=== PATIENT | female | born 1990 | race Two or more races ===

== ENCOUNTER 2019-03-14 10:45 | Observation (INO) | payer OTHER ==
[~2019-03-14 10:45] MED LIST: NORPTMEDS CO
[2019-03-14 11:42] LABS: Basophils # (auto) 0.1 uL; Eosinophils # (auto) 0.1 uL; Eosinophils % (auto) 0.8 % (0.0-7.0); Hemoglobin 10.5 g/dL (12.2-16.2); Lymphocytes # (auto) 2.1 uL; White Blood Cell 10.4 10^3/uL (4.4-10.8)
[2019-03-14 11:43] LABS: Hematocrit 33.8 % (36.0-46.0); Lymphocytes % (auto) 20.5 % (10.0-50.0); Mean Corpuscular Hemoglobin 21.6 pg (28.0-32.0); Mean Corpuscular Hgb Conc. 31.1 g/dL (32.0-36.0); Mean Corpuscular Volume 69.5 fL (80.0-100.0); Monocytes # (auto) 0.7 uL; Neutrophils # (auto) 7.3 uL; Neutrophils % (auto) 70.7 % (37.0-80.0); Platelet Count (auto) 250 10^3/uL (140-450); Red Blood Cells 4.86 10^6/uL (4.0-5.20); Red Cell Distribution Width 18.2 % (11.8-14.3); Urine Bacteria FEW /hpf (None Seen); Urine Blood Negative /uL (Negative); Urine Mucus FEW (None Seen); Urine Specific Gravity 1.014 (1.001-1.035); Urine WBC 3 /hpf (0 - 5)
[2019-03-14 11:54] LABS: Albumin 2.6 g/dL (3.4-5.0); Calcium 8.2 mg/dL (8.5-10.1); Potassium 3.7 mmol/L (3.5-5.1)
[2019-03-14 11:55] LABS: Alcohol, Urine < 3.0 mg/dL (0-5); Amphetamine Screen, Urine NEGATIVE (NEGATIVE); Barbiturate Scree,Urine NEGATIVE (NEGATIVE); Benzodiazephine Screen, Urine NEGATIVE (NEGATIVE); Cannabinoid Screen, Urine POSITIVE (NEGATIVE); Cocaine Screen, Urine NEGATIVE (NEGATIVE); Opiate Scree,Urine NEGATIVE (NEGATIVE); Phencyclidine Screen, Urine NEGATIVE (NEGATIVE)
[2019-03-14 11:58] LABS: BUN/Creatinine Ratio 11.4; Bilirubin, Total 0.3 mg/dL (0.2-1.0); Total Protein 7.3 g/dL (6.4-8.2)
[2019-03-15 06:06] LABS: Rubella Antibodies, IgG 1.95 index (Immune >0.99)
[2019-03-15 07:06] LABS: RPR Non Reactive (Non Reactive)
== END 2019-03-14 11:40 | disposition home or self-care (01) | DRG 566 ==
LOC: LDRP 10:45
PROVIDERS: ADMIT Specialist; ATTEND Specialist
DX: O26.893 Other specified pregnancy related conditions, third trimester (principal); F17.210 Nicotine dependence, cigarettes, uncomplicated; O99.333 Smoking (tobacco) complicating pregnancy, third trimester; Z3A.36 36 weeks gestation of pregnancy
CPT/HCPCS: 36415; 59025; 76805; 80053; 80307; 81001; 81002; 83036; 85025; 86592; 86703; 86762; 87081; 87340; 87491; 87591; G0378

== ENCOUNTER 2019-03-30 11:38 | Inpatient (IN) | payer SELFPAY ==
[~2019-03-30] VITALS: Ht 165.1 cm; Wt 61.2 kg
[2019-03-30] MEDS ORDERED: PREN-96 PO (12:09)
[2019-03-30] MEDS ORDERED: DERMOPLAST 60ML BOTTLE TOP PRN (12:15)
[2019-03-30] MEDS ORDERED: WITCH HAZEL-GLYCERIN PAD TOP PRN (12:15)
[2019-03-30] MEDS ORDERED: PHISODERM TOP SOLN 240ML BTL TOP PRN (12:15)
[2019-03-30] MEDS ORDERED: METHYLERGONOVINE MALEATE 0.2 MG/ML AMP IM PRN (12:15)
[2019-03-30] MEDS ORDERED: LACTATED RINGER'S 1,000 ML IV SCH (12:15)
[2019-03-30] MEDS ORDERED: PENICILLIN G POT 5MIL/D5 50ML 50 ML IV ONE (12:15)
[2019-03-30] MEDS ORDERED: LIDOCAINE 2%HCL (LOCAL ANESTH.) INJ 20ML MDV ID ONE (12:15)
[2019-03-30] MEDS ORDERED: NALBUPHINE HCL 10 MG/1ml INJECTION IV PRN (12:15)
[2019-03-30] MEDS ORDERED: LACT. RINGERS/OXYTOCIN 20UNITS 1,000 ML IV SCH (12:22)
[2019-03-30 12:46] LABS: Alcohol, Urine < 3.0 mg/dL (0-5); Amphetamine Screen, Urine POSITIVE (NEGATIVE); Barbiturate Scree,Urine NEGATIVE (NEGATIVE); Benzodiazephine Screen, Urine NEGATIVE (NEGATIVE); Cannabinoid Screen, Urine POSITIVE (NEGATIVE); Cocaine Screen, Urine NEGATIVE (NEGATIVE); Opiate Scree,Urine NEGATIVE (NEGATIVE); Phencyclidine Screen, Urine NEGATIVE (NEGATIVE)
[2019-03-30 12:51] LABS: Urine Bacteria NONE SEEN /hpf (None Seen); Urine Blood Negative /uL (Negative); Urine Mucus FEW (None Seen); Urine Specific Gravity 1.015 (1.001-1.035); Urine WBC 2 /hpf (0 - 5)
[2019-03-30 13:14] LABS: Albumin 2.4 g/dL (3.4-5.0); Calcium 8.2 mg/dL (8.5-10.1); Potassium 3.6 mmol/L (3.5-5.1)
[2019-03-30 13:16] LABS: INR < 0.93 (0.9-1.15); Partial Thromboplastin Time 24.8 sec (23.64-32.05)
[2019-03-30 13:17] LABS: BUN/Creatinine Ratio 15.7; Bilirubin, Total 0.5 mg/dL (0.2-1.0); Total Protein 6.6 g/dL (6.4-8.2)
[2019-03-30] MEDS ORDERED: LACT. RINGERS/OXYTOCIN 20UNITS 500 ML IV ONE (13:27)
[2019-03-30] MEDS ORDERED: ACETAMINOPHEN 325 MG TAB PO PRN (13:30)
[2019-03-30 13:37] LABS: Basophils # (auto) 0.1 uL; Basophils % (auto) 0.7 % (0.0-2.0); Eosinophils # (auto) 0 uL; Eosinophils % (auto) 0.1 % (0.0-7.0); Lymphocytes # (auto) 2.2 uL; White Blood Cell 15.7 10^3/uL (4.4-10.8)
[2019-03-30 13:53] LABS: Hematocrit 31.3 % (36.0-46.0); Hemoglobin 9.7 g/dL (12.2-16.2); Lymphocytes % (auto) 14.2 % (10.0-50.0); Mean Corpuscular Hemoglobin 21.5 pg (28.0-32.0); Mean Corpuscular Hgb Conc. 31.1 g/dL (32.0-36.0); Mean Corpuscular Volume 69.1 fL (80.0-100.0); Monocytes % (auto) 6.6 % (0.0-12.0); Neutrophils # (auto) 12.3 uL; Neutrophils % (auto) 78.4 % (37.0-80.0); Platelet Count (auto) 293 10^3/uL (140-450); Red Blood Cells 4.53 10^6/uL (4.0-5.20); Red Cell Distribution Width 19.4 % (11.8-14.3)
[2019-03-30 15:14] VITALS: BP 130/58
--- NOTE | 2019-03-30 15:50 | NUR ---
CALLED DR. SOSA TO LET HER KNOW PATIENTS TEMP IS 99.2 , READ WBC, HGB, LAB VALUES . PATIENT IS POSITIVE FOR METH AND THC. NEW ORDERS RECEIVED GIVE MEDICATION IRON TABS 325 MG/BID /PO , ANCEF 1 GRAM /IVPB TIMES THREE DOSES.
--- NOTE | 2019-03-30 15:50 | NUR ---
Ambulation: Patient OOB with standby assistance by RN. Patient ambulated to bathroom with steady gait. Patient able to void without difficulty 400 ML [employer] teaching provided with returned demonstration by patient. Clean gown provided and bed linen changed. Patient ambulated back to bed with steady gait and no distress noted.
[2019-03-30] MEDS ORDERED: ceFAZolin 1GM/50ML 50 ML IV ONE (16:00)
[2019-03-30] MEDS: FERROUS SULFATE 325 MG TAB PO SCH (17:56)
[2019-03-30 19:30] VITALS: BP 125/72
[2019-03-30 23:00] VITALS: BP 116/66
[2019-03-30] MEDS: IBUPROFEN 600 MG TAB PO PRN (23:09)
[2019-03-31 02:55] VITALS: BP 118/65
[2019-03-31 04:06] LABS: RPR Non Reactive (Non Reactive)
[2019-03-31] MEDS: IBUPROFEN 600 MG TAB PO PRN (05:52)
[2019-03-31 07:00] VITALS: BP 108/65
[2019-03-31] MEDS ORDERED: ceFAZolin 1GM/50ML 50 ML IV ONE ×2 (08:00)
[2019-03-31] MEDS: FERROUS SULFATE 325 MG TAB PO SCH (08:00)
[2019-03-31 11:00] VITALS: BP 135/87
--- NOTE | 2019-03-31 12:20 | NUR ---
the quality analyst/technical writer of this notes talked to modest[place] the social services and explained about what is going on with this patient and she said she will speak to the CPS and asked what is the hold for the baby of this patient.
--- NOTE | 2019-03-31 12:30 | NUR ---
Cortney the social insurance administrator called up and said that the CPS worker named Jose melendezanup her that they will follow up with the patient after discharge.the [facility] case number is [id number].
--- NOTE | 2019-03-31 13:00 | NUR ---
DR. Nowak was called to inform him about the POC of the CPS for this baby and asked him if the tech writer of this notes can get an order for the baby to be discharged, said to wait for the result of the blood culture after 24 hours.
--- NOTE | 2019-03-31 13:10 | NUR ---
explained to the patient the POC and patient verbalized understanding.
[2019-03-31 15:00] VITALS: BP 130/85
--- NOTE | 2019-03-31 15:25 | NUR ---
Discharge: Discharge instructions given to mother of baby as ordered. Copies of and hearing screening, along with vaccination record given to mother. Mother encouraged to follow up with Flow Specialist of choice and to give envelope with infants information to vessel traffic officer at 1st office visit. All questions and concerns addressed. Mother of baby verbalized understanding and agreed to comply. Mother of baby encouraged to prepare for departure and notify RN ready to leave room for ID band removal/verification and car seat check.
--- NOTE | 2019-03-31 15:25 | NUR ---
Discharge: Discharge instructions given as ordered. Pt encouraged to follow up with DIGITAL PRESS OPERATOR as instructed. All questions and concerns addressed. Patient verbalized understanding. Medication reconciliation completed and copy given to patient. All required/requested vaccines given and copies of vaccinations given to patient. Patient encouraged to prepare to depart unit.
== END 2019-03-31 15:40 | disposition home or self-care (01) | DRG 807 ==
LOC: LDRP 11:38 → OBSVTOIN 11:38 → LDRP 12:11
PROVIDERS: ADMIT Obstetrics & Gynecology; ATTEND Obstetrics & Gynecology
PROC: 10907ZC Drainage of Amniotic Fluid, Therapeutic from Products of Conception, Via Natural or Artificial Opening (ICD-10-PCS; principal; 2019-03-30)
PROC: 10E0XZZ Delivery of Products of Conception, External Approach (ICD-10-PCS; 2019-03-30)
DX: O62.3 Precipitate labor (principal); Z37.0 Single live birth; O77.0 Labor and delivery complicated by meconium in amniotic fluid; Z3A.38 38 weeks gestation of pregnancy
CPT/HCPCS: 36415; 59025; 59409; 80053; 80307; 81001; 81002; 84112; 85025; 85610; 85730; 86592; 86703; 86850; 86900; 86901; 96372; G0378; J0690; J2590